=== PATIENT | female | born 1975 | race African-American/Black ===

== ENCOUNTER 2023-11-08 21:06 | Emergency (ER) | payer OTHER ==
[2023-11-08 21:26] VITALS: BP 128/81; PULSE 81; RESP 17; TEMP 98.7; BMI 29.6
[2023-11-08] MEDS ORDERED: ACETAMINOPHEN 325 MG TABLET (FP) ONE (21:32)
[2023-11-08] MEDS: ACETAMINOPHEN 325 MG TABLET (FP) PO ONE (21:59)
[2023-11-08] MEDS ORDERED: IBUPROFEN 600 MG TABLET (FP) PO ONE (22:04)
[2023-11-08] MEDS: IBUPROFEN 600 MG TABLET (FP) PO ONE (22:05)
== END 2023-11-08 22:08 | disposition home or self-care (01) ==
LOC: JERFT 21:06
DX: S39.012A Strain of muscle, fascia and tendon of lower back, initial encounter (principal); V09.20XA Pedestrian injured in traffic accident involving unspecified motor vehicles, initial encounter
CPT/HCPCS: 99283-25